=== PATIENT | male | born 1970 | race African-American/Black ===

== ENCOUNTER 2020-01-25 10:36 | Emergency (ER) | payer OTHER ==
--- NOTE | 2020-01-25 12:12 | ULT ---
Exam: Left lower venous ultrasound with Doppler HISTORY: Pain and swelling. COMPARISON: none TECHNIQUE: Grayscale, color flow, Doppler imaging and spectral waveform analysis of the left lower ex tremity venous system FINDINGS: There is compressibility and flow in the common femoral vein, mid femoral vein. There is lack of comp ressibility and only partial flow in the distal femoral vein and proximal popliteal vein suggesting partial thrombosis. The profunda femoral vein, greater saphenous vein are patent. Posterior tibial vein cannot be visuali zed due to lower extremity edema. IMPRESSION: Partial thrombus in the distal femoral vein and proximal left popliteal vein.
== END 2020-01-25 12:45 | disposition home or self-care (01) ==
LOC: ERS 10:36
DX: I82.412 Acute embolism and thrombosis of left femoral vein (principal); I82.432 Acute embolism and thrombosis of left popliteal vein; E66.9 Obesity, unspecified; I10 Essential (primary) hypertension; E11.9 Type 2 diabetes mellitus without complications; F17.210 Nicotine dependence, cigarettes, uncomplicated